=== PATIENT | female | born 1985 | race Caucasian/White ===

== ENCOUNTER 2020-08-01 09:55 | Emergency (ER) | payer MEDICAID ==
[~2020-08-01 09:55] MED LIST: FAMO-1 PO; HYDR-3965 PO; PROM25TA14 PO; PSEU-225 PO
== END 2020-08-01 10:41 | disposition left against medical advice (07) ==
LOC: ER 09:55
DX: U07.1 COVID-19 (principal); Z53.21 Procedure and treatment not carried out due to patient leaving prior to being seen by health care provider

== ENCOUNTER 2021-06-16 15:42 | Emergency (ER) | payer MEDICAID ==
[~2021-06-16] VITALS: Ht 170.2 cm; Wt 70.0 kg
[2021-06-16 17:01] VITALS: BP 98/54
[2021-06-16] MEDS ORDERED: morphine 4 MG/ML inj SYRINge IM ONE (17:10)
[2021-06-16] MEDS ORDERED: LIDOcaine 1% W/epiNEPHrine 1:200,000 10ml vial IJ ONE (18:05)
[2021-06-16] MEDS ORDERED: metroNIDAZOLE 500mg tablet PO ONE (18:55)
[2021-06-16] MEDS ORDERED: sulfamethoxazole/trimethoprim DS (800/160mg) tablet PO ONE (18:55)
[2021-06-16] MEDS ORDERED: METR-159 PO (19:02)
[2021-06-16] MEDS ORDERED: SULF1TAB49 PO (19:02)
[2021-06-16] MEDS ORDERED: HYDR-3965 PO (19:02)
== END 2021-06-16 19:16 | disposition home or self-care (01) ==
LOC: ER 15:43
DX: N76.4 Abscess of vulva (principal); F12.10 Cannabis abuse, uncomplicated; Z88.5 Allergy status to narcotic agent
CPT/HCPCS: 56405; 87070; 87077; 87186; 96372; 99284; J2270; 10060; 56420; J3490

== ENCOUNTER 2021-12-09 15:27 | Emergency (ER) | payer MEDICAID, OTHER ==
[~2021-12-09] VITALS: Ht 170.2 cm; Wt 75.0 kg
[2021-12-09 15:30] VITALS: BP 114/54
[2021-12-09] MEDS ORDERED: bacitracin 15gm ointment TP ONE (16:25)
[2021-12-09] MEDS ORDERED: TETanus/Pertussis (Acell)/Diphther VAC/PF (Tdap-Adult) 0.5ml syringe IMVAC ONE (16:25)
[2021-12-09] MEDS ORDERED: cloNIDine 0.1 mg tablet PO ONE (16:30)
== END 2021-12-09 16:52 | disposition home or self-care (01) ==
LOC: ER 15:28
DX: S61.211A Laceration without foreign body of left index finger without damage to nail, initial encounter (principal); F12.10 Cannabis abuse, uncomplicated; Z88.5 Allergy status to narcotic agent; Z79.899 Other long term (current) drug therapy; W26.8XXA Contact with other sharp object(s), not elsewhere classified, initial encounter; Y93.89 Activity, other specified; Y92.89 Other specified places as the place of occurrence of the external cause; Y99.8 Other external cause status
CPT/HCPCS: 90471; 90715; 99283

== ENCOUNTER 2023-12-18 13:27 | Outpatient (CLI) | payer MEDICAID | END 2023-12-18 23:59 | disposition home or self-care (01) | LOC: VAS 13:27 | PROVIDERS: ATTEND Podiatrist | DX: M79.662 Pain in left lower leg (principal); R25.2 Cramp and spasm | CPT/HCPCS: 93971 ==

== ENCOUNTER → 2024-03-04 | Outpatient (CLI) | payer MEDICAID | END | disposition home or self-care (01) | LOC: RAD 12:08 | PROVIDERS: ATTEND Nurse Practitioner | DX: M41.84 Other forms of scoliosis, thoracic region (principal); M54.42 Lumbago with sciatica, left side; M54.12 Radiculopathy, cervical region; M54.6 Pain in thoracic spine | CPT/HCPCS: 72050; 72074; 72110 ==